=== PATIENT | male | born 1950 | race Caucasian/White ===

== ENCOUNTER 2025-08-16 16:10 | Emergency (ER) | payer MEDICARE ==
[2025-08-16 17:49] LABS: BASOPHILS ABSOLUTE AUTO 0.09 K/uL (0.00-0.10); BASOPHILS PERCENT AUTO 0.7 % (0.1-1.3); EOSINOPHILS PERCENT AUTO 0.1 % (0.0-5.4); IMMATURE GRAN ABSOLUTE AUTO 0.09 K/uL (0.00-0.23); IMMATURE GRAN PERCENT AUTO 0.7 % (0.0-0.7); LYMPHOCYTES ABSOLUTE AUTO 0.97 K/uL (0.8-3.3); LYMPHOCYTES PERCENT AUTO 7.3 % (11.4-47.7); MONOCYTES ABSOLUTE AUTO 0.58 K/uL (0.20-0.90); MONOCYTES PERCENT AUTO 4.4 % (3.3-12.6); NEUTROPHILS ABSOLUTE AUTO 11.55 K/uL (1.0-7.6); NEUTROPHILS PERCENT AUTO 86.8 % (40.0-78.1); PLATELET COUNT,PLT 245 K/uL (130-375); RED BLOOD CELL COUNT 4.42 M/uL (4.14-5.76); WHITE BLOOD CELL COUNT,WBC 13.3 K/uL (3.2-11.0)
[2025-08-16 17:50] LABS: EOSINOPHILS ABSOLUTE AUTO 0.01 K/uL (0.00-0.40)
[2025-08-16 18:05] LABS: BLOOD UREA NITROGEN,BUN 28.0 mg/dL (7-18); CHLORIDE,CL 102.0 mmol/L (100-108); CREATININE 1.2 mg/dL (0.8-1.3); EST CRCL DRUG DOSING (CG) 49.47 mL/min; ESTIMATED GFR 64.0 mL/min (>60); GLUCOSE RANDOM 70.0 mg/dL (74-106); POTASSIUM,K 5.8 mmol/L (3.6-5.2); SODIUM,NA 139.0 mmol/L (140-148)
[2025-08-16 18:06] LABS: CARBON DIOXIDE,CO2 15.0 mmol/L (21-32)
[2025-08-16] MEDS: 50% Dextrose in Water 50 ML Syringe IVPUSH ONE (18:20)
== END 2025-08-16 18:50 | disposition home or self-care (01) ==
LOC: JP.ED 16:10
DX: E11.649 Type 2 diabetes mellitus with hypoglycemia without coma (principal); Z79.84 Long term (current) use of oral hypoglycemic drugs; Z79.4 Long term (current) use of insulin; Z79.899 Other long term (current) drug therapy; Z88.5 Allergy status to narcotic agent; Z88.2 Allergy status to sulfonamides
CPT/HCPCS: 36415; 80048; 85025; 96374; 99284-25